=== PATIENT | male | born 1975 | race Caucasian/White ===

== ENCOUNTER 2020-09-23 15:45 | Emergency (ER) | payer SELFPAY ==
[~2020-09-23] VITALS: Ht 180.3 cm; Wt 145.1 kg
[2020-09-23 15:45] VITALS: BP_SYST 198
== END 2020-09-23 18:19 | disposition home or self-care (01) ==
LOC: SED 15:45
DX: S83.8X1A Sprain of other specified parts of right knee, initial encounter (principal); W01.0XXA Fall on same level from slipping, tripping and stumbling without subsequent striking against object, initial encounter; Y93.89 Activity, other specified; Y92.89 Other specified places as the place of occurrence of the external cause; Y99.8 Other external cause status
CPT/HCPCS: 73564; 99283